=== PATIENT | male | born 1965 | race Caucasian/White ===

== ENCOUNTER 2023-01-15 09:08 | Observation (INO) ==
[~2023-01-15 09:08] MED LIST: Buffered Lidocaine 1% SYRIN 1 ml INTRADERM ONE; Lactated Ringers 1000 ml BAG 1,000 ML IV SCH
[2023-01-15] MEDS ORDERED: Chlorhexidine MOUTHWASH 0.12% 15 ML UDC ONE (09:28)
[2023-01-15 09:52] LABS: Rapid COVID-19 Molecular Undetected (Undetected)
[2023-01-15] MEDS ORDERED: ceFAZolin 2 GM in NS PREMIX 2 GM/100 ML BAG IVPB ONE (10:04)
[2023-01-15] MEDS ORDERED: Dexamethasone IV 4 MG/ML VIAL 1 ml VIAL ONE (10:23)
[2023-01-15] MEDS ORDERED: Propofol 10 MG/ML 20 ML BTL ONE (10:23)
[2023-01-15] MEDS ORDERED: Glycopyrrolate IV 0.2 MG/ML 1 ML VIAL ONE ×2 (10:23→14:03)
[2023-01-15] MEDS ORDERED: Ondansetron 4 mg VIAL 2 MG/ML 2 ml VIAL ONE ×2 (10:23→15:26)
[2023-01-15] MEDS ORDERED: ceFAZolin VIAL VIAL ONE (10:29)
[2023-01-15] MEDS ORDERED: Thrombin 5,000 UNITS 1 APPLIC KIT - topical use - TOPICAL ONE ×2 (10:29→14:05)
[2023-01-15] MEDS ORDERED: Lidocaine 1% w EPI 1:100,000 MDV 20 ML VIAL ONE (10:29)
[2023-01-15] MEDS ORDERED: Gelfoam Sponge SIZE 100 SPONGE ONE (10:30)
[2023-01-15] MEDS ORDERED: fentaNYL 100 mcg/2 ml 50 MCG/ML VIAL ONE ×3 (10:31→15:26)
[2023-01-15] MEDS ORDERED: Acetaminophen IV 1 GM/100ML 1,000 MG/100 ML BAG IV PRN (13:35)
[2023-01-15] MEDS ORDERED: Ondansetron 4 mg VIAL 2 MG/ML 2 ml VIAL IV PRN ×2 (13:35→15:16)
[2023-01-15] MEDS ORDERED: Naloxone 0.4 mg VIAL 0.4 mg/ml 1 ml VIAL IV PRN (13:35)
[2023-01-15] MEDS ORDERED: fentaNYL 100 mcg/2 ml 50 MCG/ML VIAL IV PRN (13:35)
[2023-01-15] MEDS ORDERED: HYDROmorphone 1 MG/1 ML SYRINGE IV PRN (13:35)
[2023-01-15] MEDS ORDERED: Rocuronium 50 mg VIAL 10 mg/ml 5 ml VIAL (50 mg) ONE (14:33)
[2023-01-15] MEDS ORDERED: Senna TAB 8.6 mg TAB PO PRN (15:16)
[2023-01-15] MEDS ORDERED: HYDROcodone/ACETAMIN 5/325 mg TAB PO PRN (15:16)
[2023-01-15] MEDS ORDERED: Morphine 2 MG/ML SYRINGE IV PRN (15:16)
[2023-01-15] MEDS ORDERED: Calcium Carb (TUMS) 500 mg CHEW TAB PO PRN (15:16)
[2023-01-15] MEDS ORDERED: Magnesium Hydroxide LIQ 30 ML UDC PO PRN (15:16)
[2023-01-15] MEDS ORDERED: Acetaminophen IV 1 GM/100ML 1,000 MG/100 ML BAG IV ONE (15:26)
[2023-01-15] MEDS ORDERED: Lactated Ringers 1000 ml BAG 1,000 ML IV SCH (16:00)
[2023-01-15] MEDS: HYDROcodone/ACETAMIN 5/325 mg TAB PO PRN ×2 (18:01→22:34)
[2023-01-16] MEDS: HYDROcodone/ACETAMIN 5/325 mg TAB PO PRN (05:48)
[2023-01-16] MEDS ORDERED: Nebivolol 2.5 mg TAB (NF) PO SCH (09:00)
[2023-01-16 10:10] VITALS: BP 137/70
== END 2023-01-16 13:30 | disposition home or self-care (01) ==
LOC: OR 09:08 → SSU 09:08
PROVIDERS: ADMIT Neurological Surgery; ATTEND Neurological Surgery